=== PATIENT | male | born 1990 | race Two or more races ===

== ENCOUNTER 2018-04-28 15:26 | Inpatient (IN) | payer SELFPAY ==
[~2018-04-28] VITALS: Ht 177.8 cm; Wt 78.0 kg
[2018-04-28 15:36] VITALS: BP 120/57
[2018-04-28] MEDS ORDERED: LORazepam Inj 2mg/ml 1ml ONE (15:36)
--- NOTE | 2018-04-28 15:38 | Emergency Room Report ---
History of Present Illness General Chief Complaint: Overdose Source: EMS Present Illness HPI 28-year-old male, history of alcohol and some neck supple abuse, presenting with altered mental status. Reportedly he was altered per family, they called 911, EMS came and they gave him 6 mg Narcan, his breathing did improve however mental status did not, just moaning incontinence sounds. No other history able to be obtained Allergies: Coded Allergies: UNABLE TO ASSESS (Unverified , 04/28/18) Patient History Past Medical History: unable to obtain Past Surgical History: unable to obtain Pertinent Family History: unable to obtain Social History: Reports: drug use Nursing Documentation-[facility] Past Medical History: No Stated History Review of Systems All Other Systems: limited - altered Physical Exam Vital Signs Date Time Temp Pulse Resp B/P (MAP) Pulse Ox O2 Delivery O2 Flow Rate FiO2 04/28/18 15:26 99.0 150 28 120/57 98 Non-Rebreather 15.0 Sp02 EP Interpretation: reviewed, normal General Appearance: severe distress, other - Agitated young male, not giving any history, altered, vomiting, not conversing at all Head: normocephalic, atraumatic Eyes: bilateral eye other - Pupils are dilated bilaterally ENT: normal ENT inspection, normal pharynx, normal voice, moist mucus membranes Neck: normal inspection, full range of motion, supple Respiratory: normal inspection, lungs clear, normal breath sounds, no respiratory distress, no retraction, no wheezing, speaking full sentences, chest symmetrical Cardiovascular #1: tachycardia, irregularly irregular Cardiovascular #2: 2+ radial (R), 2+ radial (L) Gastrointestinal: normal inspection, non tender, soft, non-distended, no guarding Genitourinary: no CVA tenderness Musculoskeletal: other - Full passive range of motion of all extremities, no signs of trauma Neurologic: other - Gag reflex intact, moving all 4 Spontaneously, Good Motor Tone Psychiatric: other Skin: normal inspection, normal color, no rash, warm/dry, well hydrated, normal turgor Procedures Critical Care Time Critical Care Time 40 minutes of CC time 20-year-old male, possible overdose, vitals tachycardic, atrial fibrillation with RVR Airway patent. Not hypoxic. PLAN: IV access, labs, lactate, troponin, Blood/Urine Cx, Abx, IVF Anticipate admission to Tele vs. LUCERO CC time also includes review of labs, review of EMR, discussion with family and paperwork from SNF, d/w hospitalist CC could include dosing of pressors, additional Abx CC time does not include procedures Medical Decision Making Diagnostic Impression: Primary Impression: Drug overdose Additional Impressions: Atrial fibrillation with rapid ventricular response Altered mental status Polysubstance abuse Renal failure Sepsis ER Course 28-year-old male unknown pmhx p/w overdose DDX: tox such as alcohol / heroin / methamphetamines. R/O life threatening toxic overdose such as tylenol, ASA Plan: IV access, labs, including alcohol, tylenol, asa, IVF ER course: Patient continues to be altered Also continues to be tachycardic, atrial fibrillation with RVR, was initially in the 150s, came down to the 120s with fluids and Ativan Positive for polysubstance abuse I spoke with brother who came to the emergency room. States that patient did go out last night. Arrived at 9 AM and at that time he was talking, fully conversive. Says that the patient went to sleep, and then he noticed that the patient wasn't waking up and looked like he was having trouble breathing. Since then has not been conversing at all. Says that this has never happened in the past I decided to lumbar puncture, the CSF was clear Empiric antibiotics is given Sepsis Re-examination Time: 7p VS: Temp 99 HR 120 BP 130/90 RR 25 CVS: RRR Respiratory: Lungs clear bilaterally Peripheral pulses: 2+ radial Capillary refill: <2 seconds Skin exam: warm, dry, no rash, not mottled Disposition: Patient to be admitted to telemetry DW Dr Sales Please note that this Emergency Department Report was dictated using [employer] truck dispatcher technology software, occasionally this can lead to erroneous entry secondary to interpretation by the dictation equipment EKG Diagnostic Results EP Interpretation: Yes Rate: Tachycardic Rhythm: Atrial fibrillation ST Segments: No acute changes ASA given to patient: No Rhythm Strip EP Interpretation: Yes Rate: 158 Rhythm: Atrial fibrillation with RVR Chest X-ray CXR: Ordered: Yes 1 view Indication: Chest pain EP interpretation: Yes Interpretation: No consolidation, no effusion, no PTX, no acute cardiopulmonary disease Impression: No acute disease Electronically signed by Neymar Begum MD Laboratory Tests Test 04/28/18 15:30 04/28/18 16:15 04/28/18 16:58 04/28/18 18:20 White Blood Count 25.4 K/UL (4.8-10.8) *H Red Blood Count 5.16 M/UL (4.70-6.10) Hemoglobin 16.8 G/DL (14.2-18.0) Hematocrit 46.9 % (42.0-52.0) Mean Corpuscular Volume 91 FL (80-99) Mean Corpuscular Hemoglobin 32.6 PG (27.0-31.0) H Mean Corpuscular Hemoglobin Concent 35.9 G/DL (32.0-36.0) Red Cell Distribution Width 10.9 % (11.6-14.8) L Platelet Count 471 K/UL (150-450) H Mean Platelet Volume 6.7 FL (6.5-10.1) Neutrophils (%) (Auto) % (45.0-75.0) Lymphocytes (%) (Auto) % (20.0-45.0) Monocytes (%) (Auto) % (1.0-10.0) Eosinophils (%) (Auto) % (0.0-3.0) Basophils (%) (Auto) % (0.0-2.0) Differential Total Cells Counted 100 Neutrophils % (Manual) 83 % (45-75) H Lymphocytes % (Manual) 11 % (20-45) L Monocytes % (Manual) 3 % (1-10) Eosinophils % (Manual) 0 % (0-3) Basophils % (Manual) 1 % (0-2) Band Neutrophils 2 % (0-8) Platelet Estimate Increased H Platelet Morphology Normal Red Blood Cell Morphology Normal Sodium Level 141 MMOL/L (136-145) Potassium Level 3.8 MMOL/L (3.5-5.1) Chloride Level 103 MMOL/L (98-107) Carbon Dioxide Level 22 MMOL/L (21-32) Anion Gap 16 mmol/L (5-15) H Blood Urea Nitrogen 10 mg/dL (7-18) Creatinine 2.0 MG/DL (0.55-1.30) H Estimate Glomerular Filtration Rate 40.0 mL/min (>60) Glucose Level 201 MG/DL (74-106) H Lactic Acid Level 7.30 mmol/L (0.4-2.0) H 1.50 mmol/L (0.66-2.22) Calcium Level 9.0 MG/DL (8.5-10.1) Total Bilirubin 0.3 MG/DL (0.2-1.0) Aspartate Amino Transferase (AST) 57 U/L (15-37) H Alanine Aminotransferase (ALT) 81 U/L (12-78) H Alkaline Phosphatase 107 U/L (46-116) Total Creatine Kinase 937 U/L (26-308) H Troponin I 0.015 ng/mL (0.000-0.056) Total Protein 8.9 G/DL (6.4-8.2) H Albumin 4.0 G/DL (3.4-5.0) Globulin 4.9 g/dL Albumin/Globulin Ratio 0.8 (1.0-2.7) L Thyroid Stimulating Hormone (TSH) 1.448 uiU/mL (0.358-3.740) Salicylates Level 1.3 ug/mL (2.8-20) L Acetaminophen Level < 2 MCG/ML (10-30) L Serum Alcohol 4 mg/dL Urine Color Yellow Urine Appearance Clear Urine pH 6.5 (4.5-8.0) Urine Specific [place] 1.020 (1.005-1.035) Urine Protein 3+ (NEGATIVE) H Urine Glucose (UA) 1+ (NEGATIVE) H Urine Ketones Negative (NEGATIVE) Urine Blood 3+ (NEGATIVE) H Urine Nitrite Negative (NEGATIVE) Urine Bilirubin Negative (NEGATIVE) Urine Urobilinogen Normal MG/DL (0.0-1.0) Urine Leukocyte Esterase Negative (NEGATIVE) Urine RBC 2-4 /HPF (0 - 0) H Urine WBC 0-2 /HPF (0 - 0) Urine Squamous Epithelial Cells None /LPF (NONE/OCC) Urine Amorphous Sediment Few /LPF (NONE) H Urine Bacteria Few /HPF (NONE) Urine Opiates Screen Positive (NEGATIVE) H Urine Barbiturates Screen Negative (NEGATIVE) Phencyclidine (PCP) Screen Negative (NEGATIVE) Urine Amphetamines Screen Positive (NEGATIVE) H Urine Benzodiazepines Screen Negative (NEGATIVE) Urine Cocaine Screen Negative (NEGATIVE) Urine Marijuana (THC) Screen Positive (NEGATIVE) H CSF Appearance Pending CSF Color Pending CSF WBC Pending CSF RBC Pending CSF Neutrophils % Pending CSF Lymphocytes % Pending CSF Monocytes % Pending CSF Crenated Cells Pending CSF Glucose 90 mg/dL (50-80) H CSF Total Protein 34 MG/DL (15-45) CT/MRI/US Diagnostic Results CT/MRI/US Diagnostic Results : Imaging Test Ordered: CT HEAD Impression Impression: Negative for acute intracranial bleed or mass effect Somewhat limited exam due to slight motion artifact Last Vital Signs Date Time Temp Pulse Resp B/P (MAP) Pulse Ox O2 Delivery O2 Flow Rate FiO2 04/28/18 15:26 99.0 150 28 120/57 98 Non-Rebreather 15.0 Disposition: ADMITTED INPATIENT Condition: Critical Scripts Unable to Obtain Active Prescriptions or Reported Meds Neymar Begum M.D. Apr 28, 2018 15:38
[2018-04-28] MEDS ORDERED: LORazepam Inj 2mg/ml 1ml IV ONE (15:45)
--- NOTE | 2018-04-28 16:06 | Diagnostic Imaging Report ---
Indication: Cough, shortness of breath Technique: One view of the chest Comparison: none Findings: Lungs and pleural spaces are clear. Heart size is normal Impression: No acute process
--- NOTE | 2018-04-28 16:06 | Diagnostic Imaging Report ---
Indications: Altered mental status Technique: Spiral acquisitions obtained through the brain. Angled axial and coronal 5 x 5 mm slices were reconstructed. Total dose length product 1509.8 mGycm. CTDI vol(s) 70.38 mGy. Dose reduction achieved using automated exposure control Comparison: None. Findings: There is a small scalp hematoma in the high left parietal region. There is slight image degradation due to motion artifact. No acute intracranial hemorrhage or edema. No mass effect nor midline shift. Normal quintero-white differentiation. Normal-sized ventricles and extra axial CSF spaces. Visualized orbits and sinuses are unremarkable. The mastoids are clear Impression: Negative for acute intracranial bleed or mass effect Somewhat limited exam due to slight motion artifact The CT scanner at [facility] is accredited by the [employer] and the scans are performed using protocols designed to limit radiation exposure to as low as reasonably achievable to attain images of sufficient resolution adequate for diagnostic evaluation.
[2018-04-28 16:11] LABS: HEMATOCRIT 46.9 % (42.0-52.0); HEMOGLOBIN 16.8 G/DL (14.2-18.0); MEAN CORPUSCULAR VOLUME 91 FL (80-99); PLATELET COUNT 471 K/UL (150-450); RED BLOOD COUNT 5.16 M/UL (4.70-6.10); RED CELL DISTRIBUTION WIDTH 10.9 % (11.6-14.8)
[2018-04-28 16:12] LABS: ANION GAP 16 mmol/L (5-15); BLOOD UREA NITROGEN 10 mg/dL (7-18); CARBON DIOXIDE 22 MMOL/L (21-32); CHLORIDE 103 MMOL/L (98-107); POTASSIUM 3.8 MMOL/L (3.5-5.1); SODIUM 141 MMOL/L (136-145)
[2018-04-28 16:21] LABS: WHITE BLOOD COUNT 25.4 K/UL (4.8-10.8)
[2018-04-28 16:24] LABS: ALANINE AMINOTRANSFERASE 81 U/L (12-78); ALBUMIN/GLOBULIN RATIO 0.8 (1.0-2.7); ALKALINE PHOSPHATASE 107 U/L (46-116); ASPARTATE AMINO TRANSFERASE 57 U/L (15-37); BILIRUBIN,TOTAL 0.3 MG/DL (0.2-1.0); CREATINE KINASE 937 U/L (26-308)
[2018-04-28 16:39] LABS: APPEARANCE,URINE CLEAR; BILIRUBIN, URINE NEGATIVE (NEGATIVE); GLUCOSE, URINE (UA) 1+ (NEGATIVE); KETONES,URINE NEGATIVE (NEGATIVE); LEUKOCYTE ESTERASE ,URINE NEGATIVE (NEGATIVE); NITRITE,URINE NEGATIVE (NEGATIVE); PH,URINE 6.5 (4.5-8.0); PROTEIN,URINE 3+ (NEGATIVE); UROBILINOGEN,URINE NORMAL MG/DL (0.0-1.0)
[2018-04-28 16:47] LABS: COLOR,URINE YELLOW
[2018-04-28] MEDS ORDERED: Vancomycin 1250mg/D5W 250ml 250 ML IVPB ONE (17:00)
[2018-04-28] MEDS ORDERED: Piperacillin/Tazobactam 3.375 GM in NS 110 ML IVPB ONE (17:00)
[2018-04-28 17:25] VITALS: BP 125/70
[2018-04-28] MEDS ORDERED: Lidocaine 1% Plain 30 ml INJ ONE (18:00)
[2018-04-28] MEDS ORDERED: Morphine Sulfate 2mg/ml Inj IVP PRN (19:15)
[2018-04-28] MEDS ORDERED: LORazepam 1mg tab ORAL PRN (19:15)
--- NOTE | 2018-04-28 19:20 | History and Physical ---
History of Present Illness General Date patient seen: Apr 28, 2018 Time patient seen: 19:08 Reason for Hospitalization: Overdose Present Illness HPI 28 yo male with unknown pmh presents to ED due to altered mental status. Patient brought in by his friend. States patient came to his house to hang out, after 3 hours patient was noted to be passed out sitting up in his chair. His friend denies knowing of any drug history in patient's past. Denies knowing of any medications patient is on except for xanax, friend does not know where patient got xanax from. Denies seeing him vomit/aspirate. Patient was given 6mg narcan in the ED and patient did improve a bit, breathing improved, moaning in bed. Patient was noted to be in afib rvr, patient was given fluids and rate improved, currently tachycardic with HR 113s and sustaining. Friend states patient does drink alcohol occasionally and smokes marijuana. denies being aware of any other drug abuse hx. patient to remain full code. Allergies: Coded Allergies: UNABLE TO ASSESS (Unverified , 04/28/18) Medication History Unable to Obtain Active Prescriptions or Reported Meds Patient History History Provided By: Friend Healthcare decision maker Resuscitation status Advanced Directive on File Review of Systems ROS Narrative unable to obtain due to patient's clinical condition Physical Exam General Appearance: other - not alert, sleeping, breathing heavily, maintaining airway HEENT: normocephalic, atraumatic, anicteric, other - pinpoint pupils b/l slightly reactive to light. Neck: supple, normal inspection Respiratory/Chest: lungs clear, normal breath sounds, no respiratory distress Cardiovascular/Chest: normal peripheral pulses, tachycardia Abdomen: non tender, soft, no organomegaly, no mass Extremities: normal range of motion, normal inspection Skin Exam: normal pigmentation, warm/dry Neurologic: unresponsiveness Last 24 Hour Vital Signs Date Time Temp Pulse Resp B/P (MAP) Pulse Ox O2 Delivery O2 Flow Rate FiO2 04/28/18 17:25 97.0 121 18 125/70 96 Simple Mask 4.0 04/28/18 15:36 150 28 Nasal Cannula 4.0 04/28/18 15:36 99.0 150 28 120/57 98 Nasal Cannula 4.0 04/28/18 15:26 99.0 150 28 120/57 98 Non-Rebreather 15.0 Laboratory Tests Test 04/28/18 15:30 04/28/18 16:15 04/28/18 16:58 04/28/18 18:20 White Blood Count 25.4 K/UL (4.8-10.8) *H Red Blood Count 5.16 M/UL (4.70-6.10) Hemoglobin 16.8 G/DL (14.2-18.0) Hematocrit 46.9 % (42.0-52.0) Mean Corpuscular Volume 91 FL (80-99) Mean Corpuscular Hemoglobin 32.6 PG (27.0-31.0) H Mean Corpuscular Hemoglobin Concent 35.9 G/DL (32.0-36.0) Red Cell Distribution Width 10.9 % (11.6-14.8) L Platelet Count 471 K/UL (150-450) H Mean Platelet Volume 6.7 FL (6.5-10.1) Neutrophils (%) (Auto) % (45.0-75.0) Lymphocytes (%) (Auto) % (20.0-45.0) Monocytes (%) (Auto) % (1.0-10.0) Eosinophils (%) (Auto) % (0.0-3.0) Basophils (%) (Auto) % (0.0-2.0) Differential Total Cells Counted 100 Neutrophils % (Manual) 83 % (45-75) H Lymphocytes % (Manual) 11 % (20-45) L Monocytes % (Manual) 3 % (1-10) Eosinophils % (Manual) 0 % (0-3) Basophils % (Manual) 1 % (0-2) Band Neutrophils 2 % (0-8) Platelet Estimate Increased H Platelet Morphology Normal Red Blood Cell Morphology Normal Sodium Level 141 MMOL/L (136-145) Potassium Level 3.8 MMOL/L (3.5-5.1) Chloride Level 103 MMOL/L (98-107) Carbon Dioxide Level 22 MMOL/L (21-32) Anion Gap 16 mmol/L (5-15) H Blood Urea Nitrogen 10 mg/dL (7-18) Creatinine 2.0 MG/DL (0.55-1.30) H Estimat Glomerular Filtration Rate 40.0 mL/min (>60) Glucose Level 201 MG/DL (74-106) H Lactic Acid Level 7.30 mmol/L (0.4-2.0) H 1.50 mmol/L (0.66-2.22) Calcium Level 9.0 MG/DL (8.5-10.1) Total Bilirubin 0.3 MG/DL (0.2-1.0) Aspartate Amino Transf (AST/SGOT) 57 U/L (15-37) H Alanine Aminotransferase (ALT/SGPT) 81 U/L (12-78) H Alkaline Phosphatase 107 U/L (46-116) Total Creatine Kinase 937 U/L (26-308) H Troponin I 0.015 ng/mL (0.000-0.056) Total Protein 8.9 G/DL (6.4-8.2) H Albumin 4.0 G/DL (3.4-5.0) Globulin 4.9 g/dL Albumin/Globulin Ratio 0.8 (1.0-2.7) L Thyroid Stimulating Hormone (TSH) 1.448 uiU/mL (0.358-3.740) Salicylates Level 1.3 ug/mL (2.8-20) L Acetaminophen Level < 2 MCG/ML (10-30) L Serum Alcohol 4 mg/dL Urine Color Yellow Urine Appearance Clear Urine pH 6.5 (4.5-8.0) Urine Specific [place] 1.020 (1.005-1.035) Urine Protein 3+ (NEGATIVE) H Urine Glucose (UA) 1+ (NEGATIVE) H Urine Ketones Negative (NEGATIVE) Urine Blood 3+ (NEGATIVE) H Urine Nitrite Negative (NEGATIVE) Urine Bilirubin Negative (NEGATIVE) Urine Urobilinogen Normal MG/DL (0.0-1.0) Urine Leukocyte Esterase Negative (NEGATIVE) Urine RBC 2-4 /HPF (0 - 0) H Urine WBC 0-2 /HPF (0 - 0) Urine Squamous Epithelial Cells None /LPF (NONE/OCC) Urine Amorphous Sediment Few /LPF (NONE) H Urine Bacteria Few /HPF (NONE) Urine Opiates Screen Positive (NEGATIVE) H Urine Barbiturates Screen Negative (NEGATIVE) Phencyclidine (PCP) Screen Negative (NEGATIVE) Urine Amphetamines Screen Positive (NEGATIVE) H Urine Benzodiazepines Screen Negative (NEGATIVE) Urine Cocaine Screen Negative (NEGATIVE) Urine Marijuana (THC) Screen Positive (NEGATIVE) H CSF Appearance Pending CSF Color Pending CSF WBC Pending CSF RBC Pending CSF Neutrophils % Pending CSF Lymphocytes % Pending CSF Monocytes % Pending CSF Crenated Cells Pending CSF Glucose 90 mg/dL (50-80) H CSF Total Protein 34 MG/DL (15-45) Height (Feet): 5 Height (Inches): 10.00 Weight (Pounds): 180 Medications Current Medications Medications (Trade) Dose Ordered Sig/Deisy Route PRN Reason Start Time Stop Time Status Last Admin Dose Admin Heparin Sodium (Porcine) (Heparin 5000 units/ml) 5,000 units EVERY 8 HOURS SUBQ 04/28/18 22:00 05/28/18 21:59 UNV Lorazepam (Ativan) 1 mg Q6H PRN ORAL For Anxiety 04/28/18 19:15 05/05/18 19:14 UNV Piperacillin Sod/ Tazobactam Sod 3.375 gm/Sodium Chloride 110 ml @ 27.5 mls/hr EVERY 8 HOURS IVPB 04/29/18 06:00 05/06/18 05:59 Sodium Chloride 1,000 ml @ 999 mls/hr Q1H1M IV 04/28/18 18:53 04/28/18 19:53 Vancomycin HCl (Vanco rx to dose) 1 ea DAILY MISC 04/29/18 09:00 05/29/18 08:59 Assessment/Plan Problem List: (1) Septic shock Assessment & Plan: wbc 25.4, LA 7.1, HR 118 with alize with Cr 2.0 on admit unknown source of infection blood cx x 2 sent LP done by ED physician, labs sent out IVF, aggressive hydration cxr reviewed, neg acute cardopulm processes noted cth reviewed, neg acute vanc, zosyn tele i/o monitor closely low threshold for ICU transfer if becomes more somnolent and has difficulty maintaining airway. currently stable, maintaining airway ICD Codes: A41.9 - Sepsis, unspecified organism; R65.21 - Severe sepsis with septic shock SNOMED: 12036853 (2) Acute metabolic encephalopathy Assessment & Plan: due to septic shock vs substance abuse (meth) fluids tele monitor closely LP done cx pending management per above ICD Codes: G93.41 - Metabolic encephalopathy SNOMED: 26263494, 348617271 (3) Atrial fibrillation with RVR Assessment & Plan: ekg reviewed, was in afib rvr, rate controlled with fluids.. continue hydration, monitor tele ICD Codes: I48.91 - Unspecified atrial fibrillation SNOMED: 302692548412776 (4) Polysubstance abuse Assessment & Plan: amph+ opiates+ marijuana+ will need to discuss drug cessation when more awake ICD Codes: F19.10 - Other psychoactive substance abuse, uncomplicated SNOMED: 423053316 (5) Renal failure Assessment & Plan: Cr 2.0 likely due to sepsis vs severe dehydration from drug abuse cont aggressive hydration monitor cr ICD Codes: N19 - Unspecified kidney failure SNOMED: 93824206 Qualifiers: Status: stable Assessment/Plan ppx: heparin diet: npo i have spent over 70 mins in the coordination of care for this patient along with over 35 mins of face to face time with patient and friend. Please feel free to contact me at any time thank you Rosemary Sales [facility] Rosemary Sales MD Apr 28, 2018 19:20
[2018-04-28 21:17] VITALS: BP 110/53
[2018-04-28 21:30] VITALS: BP 100/73
[2018-04-28] MEDS ORDERED: Piperacillin/Tazobactam 3.375 GM in D5W 55 ML IV SCH (22:00)
[2018-04-28] MEDS: Heparin 5000 units/ml inj SUBQ SCH (22:34)
[2018-04-29] VITALS: BP 101/73
[2018-04-29 04:00] VITALS: BP 100/65
[2018-04-29 04:54] LABS: HEMATOCRIT 44.6 % (42.0-52.0); HEMOGLOBIN 15.6 G/DL (14.2-18.0); MEAN CORPUSCULAR VOLUME 90 FL (80-99); PLATELET COUNT 385 K/UL (150-450); RED BLOOD COUNT 4.95 M/UL (4.70-6.10); RED CELL DISTRIBUTION WIDTH 11.1 % (11.6-14.8)
[2018-04-29 05:20] LABS: WHITE BLOOD COUNT 23.7 K/UL (4.8-10.8)
[2018-04-29] MEDS: Zoysn 3.37gm in NS 100ML IVPB SCH ×3 (05:30→22:07)
[2018-04-29] MEDS: Heparin 5000 units/ml inj SUBQ SCH ×3 (05:31→22:08)
[2018-04-29 05:46] LABS: ANION GAP 7 mmol/L (5-15); BLOOD UREA NITROGEN 10 mg/dL (7-18); CALCIUM 7.7 MG/DL (8.5-10.1); CARBON DIOXIDE 27 MMOL/L (21-32); CHLORIDE 105 MMOL/L (98-107); CREATININE 1.3 MG/DL (0.55-1.30); POTASSIUM 3.8 MMOL/L (3.5-5.1); SODIUM 139 MMOL/L (136-145)
[2018-04-29 05:57] LABS: ALANINE AMINOTRANSFERASE 69 U/L (12-78); ALBUMIN 3.3 G/DL (3.4-5.0); ALBUMIN/GLOBULIN RATIO 0.8 (1.0-2.7); ALKALINE PHOSPHATASE 83 U/L (46-116); ASPARTATE AMINO TRANSFERASE 45 U/L (15-37); BILIRUBIN,TOTAL 1.1 MG/DL (0.2-1.0)
[2018-04-29 06:00] LABS: BILIRUBIN,DIRECT 0.3 MG/DL (0.0-0.3)
[2018-04-29] MEDS: Vancomycin 1gm in Dextrose 275ml IVPB SCH ×3 (07:00→23:53)
[2018-04-29 08:00] VITALS: BP 101/55
--- NOTE | 2018-04-29 11:14 | General Progress Note ---
Assessment/Plan Problem List: (1) Septic shock Assessment & Plan: more awake now wbc still elevated but down to 23 from 25 cont eliane, oumar bcx x 2 sent out yesterday on admit cont fluids LA resolved, wnl now ICD Codes: A41.9 - Sepsis, unspecified organism; R65.21 - Severe sepsis with septic shock SNOMED: 23730454 (2) Acute metabolic encephalopathy Assessment & Plan: due to septic shock vs substance abuse (meth) fluids tele monitor closely LP done, neg stable resolved, back to baseline ICD Codes: G93.41 - Metabolic encephalopathy SNOMED: 74853001, 079139953 (3) Atrial fibrillation with RVR Assessment & Plan: rate controlled now likely due to shock, substance abuse cont on tele monitor ICD Codes: I48.91 - Unspecified atrial fibrillation SNOMED: 773633187365670 (4) Polysubstance abuse Assessment & Plan: amph+ opiates+ marijuana+ will need to discuss drug cessation when more awake ICD Codes: F19.10 - Other psychoactive substance abuse, uncomplicated SNOMED: 990984841 (5) Renal failure Assessment & Plan: resolved cont fluids due to dehydration, shock , substance abuse ICD Codes: N19 - Unspecified kidney failure SNOMED: 98604284 Qualifiers: Status: stable Assessment/Plan ppx: heparin diet: regular diet I have spent over 70 mins in the coordination of care for this patient along with over 35 mins of face to face time with patient and friend. Please feel free to contact me at any time Thank you Rosemary Sales [facility] Subjective Date patient seen: Apr 29, 2018 Time patient seen: 11:09 Allergies: Coded Allergies: NO KNOWN ALLERGIES (Verified Allergy, Unknown, 04/29/18) All Systems: reviewed and negative except above Subjective patient awake now conversing appropriately denies any complaints states he overdosed on xanax denied drug use at first, then admitted to meth use once i had brought it up is asking for food, is hungry denies any cp, sob, fevers, chills Objective Last 24 Hour Vital Signs Date Time Temp Pulse Resp B/P (MAP) Pulse Ox O2 Delivery O2 Flow Rate FiO2 04/29/18 08:00 98.2 93 16 101/55 (70) 92 04/29/18 04:00 96.8 110 18 100/65 (77) 97 04/29/18 04:00 121 04/29/18 00:00 107 04/29/18 00:00 96.8 102 20 101/73 (82) 91 04/28/18 21:40 98.0 100 18 110/53 96 Simple Mask 4.0 100 04/28/18 21:37 113 04/28/18 21:30 Simple Mask 4.0 04/28/18 21:30 96.8 113 18 100/73 (82) 93 04/28/18 21:17 98.0 100 18 110/53 96 Simple Mask 4.0 04/28/18 17:25 97.0 121 18 125/70 96 Simple Mask 4.0 04/28/18 15:36 150 28 Nasal Cannula 4.0 04/28/18 15:36 99.0 150 28 120/57 98 Nasal Cannula 4.0 04/28/18 15:26 99.0 150 28 120/57 98 Non-Rebreather 15.0 Intake and Output 04/28/18 04/29/18 19:00 07:00 Intake Total 2110 ml 1321.25 ml Output Total 1000 ml Balance 2110 ml 321.25 ml Intake IV Total 2110 ml 1321.25 ml Output Urine Total 1000 ml # Voids 1 Laboratory Tests 04/28/18 15:30: White Blood Count 25.4*H, Red Blood Count 5.16, Hemoglobin 16.8, Hematocrit 46.9 , Mean Corpuscular Volume 91, Mean Corpuscular Hemoglobin 32.6H, Mean Corpuscular Hemoglobin Concent 35.9, Red Cell Distribution Width 10.9L, Platelet Count 471H, Mean Platelet Volume 6.7, Neutrophils (%) (Auto) , Lymphocytes (%) (Auto) , Monocytes (%) (Auto) , Eosinophils (%) (Auto) , Basophils (%) (Auto) , Differential Total Cells Counted 100, Neutrophils % ( Manual) 83H, Lymphocytes % (Manual) 11L, Monocytes % (Manual) 3, Eosinophils % ( Manual) 0, Basophils % (Manual) 1, Band Neutrophils 2, Platelet Estimate IncreasedH, Platelet Morphology Normal, Red Blood Cell Morphology Normal, Sodium Level 141, Potassium Level 3.8, Chloride Level 103, Carbon Dioxide Level 22, Anion Gap 16H, Blood Urea Nitrogen 10, Creatinine 2.0H, Estimat Glomerular Filtration Rate 40.0, Glucose Level 201H, Lactic Acid Level 7.30H, Calcium Level 9.0, Total Bilirubin 0.3, Aspartate Amino Transf (AST/SGOT) 57H, Alanine Aminotransferase (ALT/SGPT) 81H, Alkaline Phosphatase 107, Total Creatine Kinase 937H, Creatine Kinase MB 6.8H, Troponin I 0.015, Total Protein 8.9H, Albumin 4.0, Globulin 4.9, Albumin/Globulin Ratio 0.8L, Thyroid Stimulating Hormone (TSH) 1.448, Salicylates Level 1.3L, Acetaminophen Level < 2L, Serum Alcohol 4 04/28/18 16:15: Urine Color Yellow, Urine Appearance Clear, Urine pH 6.5, Urine Specific [place] 1.020, Urine Protein 3+H, Urine Glucose (UA) 1+H, Urine Ketones Negative , Urine Blood 3+H, Urine Nitrite Negative, Urine Bilirubin Negative, Urine Urobilinogen Normal, Urine Leukocyte Esterase Negative, Urine RBC 2-4H, Urine WBC 0-2, Urine Squamous Epithelial Cells None, Urine Amorphous Sediment FewH, Urine Bacteria Few, Urine Opiates Screen PositiveH, Urine Barbiturates Screen Negative, Phencyclidine (PCP) Screen Negative, Urine Amphetamines Screen PositiveH, Urine Benzodiazepines Screen Negative, Urine Cocaine Screen Negative , Urine Marijuana (THC) Screen PositiveH 04/28/18 16:58: Lactic Acid Level 1.50 04/28/18 18:20: CSF Appearance Clear, CSF Color Colorless, CSF WBC 2, CSF RBC 25, CSF Neutrophils % , CSF Lymphocytes % , CSF Monocytes % , CSF Crenated Cells , CSF Glucose 90H, CSF Total Protein 34 04/28/18 21:15: Lactic Acid Level 1.10 04/29/18 04:00: White Blood Count 23.7*H, Red Blood Count 4.95, Hemoglobin 15.6, Hematocrit 44.6 , Mean Corpuscular Volume 90, Mean Corpuscular Hemoglobin 31.6H, Mean Corpuscular Hemoglobin Concent 35.0, Red Cell Distribution Width 11.1L, Platelet Count 385, Mean Platelet Volume 7.2, Neutrophils (%) (Auto) , Lymphocytes (%) (Auto) , Monocytes (%) (Auto) , Eosinophils (%) (Auto) , Basophils (%) (Auto) , Differential Total Cells Counted 100, Neutrophils % ( Manual) 78H, Lymphocytes % (Manual) 13L, Monocytes % (Manual) 8, Eosinophils % ( Manual) 1, Basophils % (Manual) 0, Band Neutrophils 0, Platelet Estimate Adequate, Platelet Morphology Normal, Red Blood Cell Morphology Normal, Sodium Level 139, Potassium Level 3.8, Chloride Level 105, Carbon Dioxide Level 27, Anion Gap 7, Blood Urea Nitrogen 10, Creatinine 1.3, Estimat Glomerular Filtration Rate > 60, Glucose Level 86#, Calcium Level 7.7L, Total Bilirubin 1.1H, Direct Bilirubin 0.3, Aspartate Amino Transf (AST/SGOT) 45H, Alanine Aminotransferase (ALT/SGPT) 69, Alkaline Phosphatase 83, Total Protein 7.4, Albumin 3.3L, Globulin 4.1, Albumin/Globulin Ratio 0.8L, Random Vancomycin Level 4.4 Height (Feet): 5 Height (Inches): 10.00 Weight (Pounds): 172 General Appearance: no apparent distress, alert EENT: PERRL/EOMI, normal ENT inspection, TMs normal, pharynx normal Neck: non-tender, normal alignment, supple, normal inspection Cardiovascular: normal peripheral pulses, normal rate, regular rhythm Respiratory/Chest: chest wall non-tender, lungs clear, normal breath sounds, no respiratory distress, no accessory muscle use Abdomen: normal bowel sounds, non tender, soft, no organomegaly, no mass Extremities: normal range of motion, non-tender 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
[2018-04-29 12:00] VITALS: BP 106/61
[2018-04-29 16:00] VITALS: BP 118/63
[2018-04-29 20:00] VITALS: BP 113/66
[2018-04-30] VITALS: BP 116/73
[2018-04-30] MEDS: Vancomycin 1gm in Dextrose 275ml IVPB SCH ×3 (02:09→18:37)
[2018-04-30 04:00] VITALS: BP 122/57
[2018-04-30] MEDS: Zoysn 3.37gm in NS 100ML IVPB SCH ×3 (05:17→22:39)
[2018-04-30] MEDS: Heparin 5000 units/ml inj SUBQ SCH ×3 (05:18→22:40)
[2018-04-30 08:00] VITALS: BP 117/65
--- NOTE | 2018-04-30 08:33 | General Progress Note ---
Assessment/Plan Problem List: (1) Septic shock Assessment & Plan: more awake now wbc trending down, pending AM labs cont abx bxc pending LA resolved, wnl now ICD Codes: A41.9 - Sepsis, unspecified organism; R65.21 - Severe sepsis with septic shock SNOMED: 14647531 (2) Acute metabolic encephalopathy Assessment & Plan: due to septic shock vs substance abuse (meth) fluids tele monitor closely LP done, neg stable resolved, back to baseline ICD Codes: G93.41 - Metabolic encephalopathy SNOMED: 19067419, 573541668 (3) Atrial fibrillation with RVR Assessment & Plan: rate controlled now likely due to shock, substance abuse cont on tele monitor ICD Codes: I48.91 - Unspecified atrial fibrillation SNOMED: 160886745204361 (4) Polysubstance abuse Assessment & Plan: amph+ opiates+ marijuana+ will need to discuss drug cessation when more awake ICD Codes: F19.10 - Other psychoactive substance abuse, uncomplicated SNOMED: 646099356 (5) Renal failure Assessment & Plan: resolved cont fluids due to dehydration, shock , substance abuse ICD Codes: N19 - Unspecified kidney failure SNOMED: 77927854 Qualifiers: Status: doing well, stable, progressing Assessment/Plan ppx: heparin diet: regular diet I have spent over 45 mins in the coordination of care for this patient along with over 35 mins of face to face time with patient and friend. Please feel free to contact me at any time Thank you Rosemary Sales [facility] Subjective Date patient seen: Apr 30, 2018 Time patient seen: 08:31 Allergies: Coded Allergies: NO KNOWN ALLERGIES (Verified Allergy, Unknown, 04/29/18) Subjective patient awake now no acute events overnight feeling better now says he will quit doing drugs 12 point ros negative except for the above Objective Last 24 Hour Vital Signs Date Time Temp Pulse Resp B/P (MAP) Pulse Ox O2 Delivery O2 Flow Rate FiO2 04/30/18 08:00 97.5 88 20 117/65 (82) 97 04/30/18 04:00 98.4 88 20 122/57 (78) 96 04/30/18 03:53 90 04/30/18 00:00 99.5 100 20 116/73 (87) 98 04/29/18 23:30 101.8 11/15/18 23:22 107 04/29/18 21:00 Nasal Cannula 3.0 04/29/18 20:03 100 04/29/18 20:00 98.0 106 20 113/66 (82) 97 04/29/18 16:00 99.0 109 16 118/63 (81) 97 04/29/18 16:00 101 04/29/18 12:00 99.7 103 20 106/61 (76) 92 04/29/18 12:00 100 04/29/18 09:00 Nasal Cannula 3.0 Intake and Output 04/29/18 04/30/18 19:00 07:00 Intake Total 390 ml 2090.000 ml Output Total 300 ml Balance 90 ml 2090.000 ml Intake Oral 240 ml IV Total 150 ml 2090.000 ml Output Urine Total 300 ml # Voids 2 2 Height (Feet): 5 Height (Inches): 10.00 Weight (Pounds): 172 General Appearance: no apparent distress, alert EENT: PERRL/EOMI, normal ENT inspection, TMs normal Neck: non-tender, normal alignment, supple, normal inspection Cardiovascular: normal peripheral pulses, normal rate, regular rhythm Respiratory/Chest: chest wall non-tender, lungs clear, normal breath sounds, no respiratory distress, no accessory muscle use Abdomen: normal bowel sounds, non tender, soft, no organomegaly, no mass Extremities: normal range of motion, non-tender, normal inspection 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
[2018-04-30 09:45] LABS: ANION GAP 9 mmol/L (5-15); BLOOD UREA NITROGEN 5 mg/dL (7-18); CALCIUM 8.6 MG/DL (8.5-10.1); CARBON DIOXIDE 25 MMOL/L (21-32); CHLORIDE 107 MMOL/L (98-107); POTASSIUM 3.2 MMOL/L (3.5-5.1); SODIUM 141 MMOL/L (136-145)
[2018-04-30 12:00] VITALS: BP 106/57
[2018-04-30 12:54] LABS: BASOPHILS % (AUTO) 0.9 % (0.0-2.0); HEMATOCRIT 39.7 % (42.0-52.0); LYMPHOCYTES % (AUTO) 16.2 % (20.0-45.0); MEAN CORPUSCULAR VOLUME 89 FL (80-99); MONOCYTES % (AUTO) 6.3 % (1.0-10.0); NEUTROPHILS % (AUTO) 73.6 % (45.0-75.0); PLATELET COUNT 328 K/UL (150-450); RED BLOOD COUNT 4.44 M/UL (4.70-6.10); RED CELL DISTRIBUTION WIDTH 10.7 % (11.6-14.8); WHITE BLOOD COUNT 13.8 K/UL (4.8-10.8)
[2018-04-30] MEDS ORDERED: Tubing IV Secondary IV ONE (15:36)
[2018-04-30] MEDS ORDERED: NS 275ml ONE (15:36)
[2018-04-30 16:00] VITALS: BP 111/69
--- NOTE | 2018-04-30 16:39 | Cardiology Report ---
APPROVED REPORT EKG Measurement Heart [id number] Atrial fibrillation with rapid ventricular response Nonspecific ST abnormality Abnormal QRS-T angle, consider primary T wave abnormality Abnormal ECG
[2018-04-30 20:00] VITALS: BP 120/70
[2018-05-01] VITALS: BP 126/68
[2018-05-01] MEDS: Vancomycin 1gm in Dextrose 275ml IVPB SCH (02:46)
[2018-05-01 04:00] VITALS: BP 117/76
[2018-05-01] MEDS ORDERED: guaiFENesin 100mg/5ml Liq ud ORAL PRN (04:15)
[2018-05-01] MEDS: Zoysn 3.37gm in NS 100ML IVPB SCH (06:23)
[2018-05-01] MEDS: Heparin 5000 units/ml inj SUBQ SCH (06:24)
[2018-05-01 07:58] LABS: BASOPHILS % (AUTO) 1.2 % (0.0-2.0); EOSINOPHILS % (AUTO) 5.1 % (0.0-3.0); HEMATOCRIT 43.4 % (42.0-52.0); HEMOGLOBIN 15.4 G/DL (14.2-18.0); LYMPHOCYTES % (AUTO) 26.9 % (20.0-45.0); MEAN CORPUSCULAR VOLUME 88 FL (80-99); MONOCYTES % (AUTO) 5.4 % (1.0-10.0); NEUTROPHILS % (AUTO) 61.4 % (45.0-75.0); PLATELET COUNT 394 K/UL (150-450); RED BLOOD COUNT 4.92 M/UL (4.70-6.10); RED CELL DISTRIBUTION WIDTH 10.7 % (11.6-14.8); WHITE BLOOD COUNT 9.1 K/UL (4.8-10.8)
[2018-05-01 08:00] VITALS: BP 139/91
--- NOTE | 2018-05-01 08:12 | Discharge Summary ---
Discharge Summary Hospital Course Date of Admission Apr 28, 2018 at 16:03 Date of Discharge 05/01/18 Admitting Diagnosis AFIB, OD HPI Sami Maradiaga is a 28 year old male who was admitted on Apr 28, 2018 at 16: 03 for Atrial Fibrillation, Overdose Hospital Course 28 yo male with no sig pmh presented to [facility] [place] due to altered mental status. Patient's friend states he came over to the house and fell asleep in his chair after a few hours. he was having a difficult time waking his friend up, he would not move or wake up, so he brought him to [facility] [place]. Friend does not know of any medical conditions that he has, states he does not do drugs however UDS + amphetamine, states patient does take a lot of xanax. Patietn was brought in and labs and vitals were concerning for septic shock, was noted to be in mild CONNIE. Patient was given fluids aggresively and bcx were sent. CXR was reviewed, negative acute, ekg was sinus tachy. Patient improved during hospital course with abx and fluids. Bcx remained neg. Patient awake and alert and ready to go home. wbc resolved as well. patient has been educated multiple times for over 15 mins on drug cessation patient is stable to dc home f/u with pcp in 1 week will also write script for abx augmentin for 7 days. 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 Please feel free to contact me at any time Thank you Rosemary Sales [facility] Discharge Condition Upon Discharge: stable Discharge Disposition Patient was discharged to Discharge Diagnoses: (1) Drug abuse (2) Septic shock (3) Atrial fibrillation with rapid ventricular response (4) Drug overdose (5) Polysubstance abuse (6) Altered mental status (7) Renal failure Rosemary Sales MD May 01, 2018 08:12
[2018-05-01 08:18] LABS: ANION GAP 12 mmol/L (5-15); BLOOD UREA NITROGEN 5 mg/dL (7-18); CALCIUM 9.8 MG/DL (8.5-10.1); CARBON DIOXIDE 24 MMOL/L (21-32); CHLORIDE 106 MMOL/L (98-107); CREATININE 0.8 MG/DL (0.55-1.30); POTASSIUM 3.5 MMOL/L (3.5-5.1); SODIUM 142 MMOL/L (136-145)
[2018-05-01] MEDS ORDERED: LEVOFLOXACIN750 MG ORAL (08:20)
== END 2018-05-01 08:56 | disposition home or self-care (01) | DRG 871 ==
LOC: EDBD 15:26 → EMR 15:54 → 2E 16:03 → EDBD 16:03 → EDBEDREQ 16:40
DX: A41.9 Sepsis, unspecified organism (principal); R65.21 Severe sepsis with septic shock; G93.41 Metabolic encephalopathy; N17.9 Acute kidney failure, unspecified; I48.91 Unspecified atrial fibrillation; F19.10 Other psychoactive substance abuse, uncomplicated; T50.991A Poisoning by other drugs, medicaments and biological substances, accidental (unintentional), initial encounter; R41.82 Altered mental status, unspecified; Y92.009 Unspecified place in unspecified non-institutional (private) residence as the place of occurrence of the external cause
CPT/HCPCS: 36415; 70450; 71045; 80048; 80053; 80202; 80307; 80329; 81003; 82248; 82550; 82553; 82945; 83605; 84157; 84443; 84484; 85007; 85025; 86710; 87040; 87070; 87205; 89051; 93005; 96361; 96365; 96367; 96375; 99291; J8499

== ENCOUNTER 2019-12-11 12:26 | Emergency (ER) | payer SELFPAY ==
[~2019-12-11] VITALS: Ht 170.2 cm; Wt 81.6 kg
[~2019-12-11 12:26] MED LIST: LEVOFLOXACIN750 MG ORAL
--- NOTE | 2019-12-11 12:40 | NUR ---
ED Nurse Note: Pt arrived via ambulance for OD of oxy and another substance. Pt was found on streets. Narcan 2 administerd by ambulance. Pt is alert adn ox4, drowsy. He is set up on monitor. Pt blood sent to lab.
[2019-12-11 12:45] VITALS: BP 127/62
[2019-12-11 12:50] LABS: BASOPHILS % (AUTO) 1.2 % (0.0-2.0); EOSINOPHILS % (AUTO) 1.6 % (0.0-3.0); HEMATOCRIT 49.6 % (42.0-52.0); HEMOGLOBIN 16.3 G/DL (14.2-18.0); LYMPHOCYTES % (AUTO) 16.5 % (20.0-45.0); MEAN CORPUSCULAR VOLUME 97 FL (80-99); MONOCYTES % (AUTO) 3.2 % (1.0-10.0); NEUTROPHILS % (AUTO) 77.6 % (45.0-75.0); PLATELET COUNT 260 K/UL (150-450); RED BLOOD COUNT 5.13 M/UL (4.70-6.10); RED CELL DISTRIBUTION WIDTH 11.8 % (11.6-14.8); WHITE BLOOD COUNT 17.1 K/UL (4.8-10.8)
--- NOTE | 2019-12-11 12:51 | Emergency Room Report ---
History of Present Illness General Chief Complaint: Substance Abuse Source: Patient, EMS Present Illness HPI Disclaimer: Please note that this report is being documented using DRAGON technology. This can lead to erroneous entry secondary to incorrect interpretation by the dictating instrument. HPI: 29-year-old male brought in by EMS for overdose. EMS states he was abusing OxyContin and Xanax. He has a prescription for both. The patient is somnolent but arousable to voice. He states that he has been abusing pills and alcohol for some time and would like to go to rehab. Today he states he took 10 tablets of 10 mg oxycodone and 5 tablets of 2 mg Xanax. He states this is a typical routine for him. He had alcohol yesterday but denies any today. Occasionally will use cocaine and THC. Denies other substance abuse. He states this was recreational and part of his addiction that he was not attempting to harm himself in any way. He was given 2 mg Narcan in the field with some result. 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 HEENT: NC/AT. EOMI. pupils are 3 mm reactive bilaterally. No scleral injection. Dry mucous membranes. Cardiovascular: Tachycardic, heart rate in the 110s.. S1 and S2 normal. No murmur appreciated Resp: Normal work of breathing. Sonorous respirations, no wheezing, no crackles , no cough Abdomen: Abdomen is soft, nondistended. Nontender Skin: Intact. No abrasions, laceration or rash over the exposed skin MSK: Normal tone and bulk. Moving all extremities. No obvious deformity. Neuro: Somnolent but arousable to voice. GCS 14. Medical Decision Making Diagnostic Impression: Primary Impression: Drug overdose ER Course Is a 29-year-old male presenting by EMS for overdose of narcotics and benzodiazepines. He was given 2 mg Narcan in the field. He is arousable to voice a GCS 14 protecting his airway in no distress at this time. He is requesting advice on rehab facilities and is adamant that this was recreational use of these substances and not a suicide attempt. Labs show slight elevation in white count but the patient is afebrile. Creatinine slightly elevated 1.4 with a normal BUN and otherwise normal metabolic panel. Alcohol, salicylates and amphetamine levels are negative. Urine tox is pending. The patient is easily arousable but somewhat somnolent still. Does not require emergent administration of reversal medications at this time. Discussed with poison control who recommends long-term monitoring. We will further monitor in the emergency department until the patient metabolizes. He will be signed out to oncoming physician, Dr. Mcallister, for reevaluation and ultimate disposition. Laboratory Tests Test 12/11/19 12:33 12/11/19 18:04 White Blood Count 17.1 K/UL (4.8-10.8) H Red Blood Count 5.13 M/UL (4.70-6.10) Hemoglobin 16.3 G/DL (14.2-18.0) Hematocrit 49.6 % (42.0-52.0) Mean Corpuscular Volume 97 FL (80-99) Mean Corpuscular Hemoglobin 31.8 PG (27.0-31.0) H Mean Corpuscular Hemoglobin Concent 32.9 G/DL (32.0-36.0) Red Cell Distribution Width 11.8 % (11.6-14.8) Platelet Count 260 K/UL (150-450) Mean Platelet Volume 8.5 FL (6.5-10.1) Neutrophils (%) (Auto) 77.6 % (45.0-75.0) H Lymphocytes (%) (Auto) 16.5 % (20.0-45.0) L Monocytes (%) (Auto) 3.2 % (1.0-10.0) Eosinophils (%) (Auto) 1.6 % (0.0-3.0) Basophils (%) (Auto) 1.2 % (0.0-2.0) Sodium Level 138 MMOL/L (136-145) Potassium Level 3.5 MMOL/L (3.5-5.1) Chloride Level 104 MMOL/L (98-107) Carbon Dioxide Level 20 MMOL/L (21-32) L Anion Gap 15 mmol/L (5-15) Blood Urea Nitrogen 12 mg/dL (7-18) Creatinine 1.4 MG/DL (0.55-1.30) H Estimated Glomerular Filtration Rate 59.9 mL/min (>60) Glucose Level 166 MG/DL (74-106) H Calcium Level 8.1 MG/DL (8.5-10.1) L Total Bilirubin 0.3 MG/DL (0.2-1.0) Aspartate Amino Transferase (AST) 38 U/L (15-37) H Alanine Aminotransferase (ALT) 59 U/L (12-78) Alkaline Phosphatase 92 U/L (46-116) Total Protein 7.7 G/DL (6.4-8.2) Albumin 3.9 G/DL (3.4-5.0) Globulin 3.8 g/dL Albumin/Globulin Ratio 1.0 (1.0-2.7) Salicylates Level 0.9 ug/mL (2.8-20) L Acetaminophen Level < 2 MCG/ML (10-30) L Serum Alcohol < 3 mg/dL Urine Opiates Screen Negative (NEGATIVE) Urine Barbiturates Screen Negative (NEGATIVE) Phencyclidine (PCP) Screen Negative (NEGATIVE) Urine Amphetamines Screen Negative (NEGATIVE) Urine Benzodiazepines Screen Negative (NEGATIVE) Urine Cocaine Screen Negative (NEGATIVE) Urine Marijuana (THC) Screen Negative (NEGATIVE) EKG Diagnostic Results EKG Time: 12:35 Rate: tachycardiac Rhythm: NSR ST Segments: no acute changes Other Impression Sinus tachycardia, normal axis, normal intervals, no ST segment changes. Rhythm Strip Diag. Results Rhythm Strip Time: 12:35 EP Interpretation: yes Rate: 114 Rhythm: NSR, no PVC's, no ectopy Last Vital Signs Date Time Temp Pulse Resp B/P (MAP) Pulse Ox O2 Delivery O2 Flow Rate FiO2 12/11/19 12:20 97.9 140 16 134/63 (86) 99 Room Air Disposition: HOME, SELF-CARE Condition: Stable Scripts Naloxone HCl (Narcan) 4 Mg [place] 4 MG NS ONCE, #1 SPRAY Prov: Errol Mcallister MD 12/11/19 Juno Camacho MD Dec 11, 2019 12:51
[2019-12-11 13:08] LABS: ANION GAP 15 mmol/L (5-15); BLOOD UREA NITROGEN 12 mg/dL (7-18); CALCIUM 8.1 MG/DL (8.5-10.1); CARBON DIOXIDE 20 MMOL/L (21-32); CHLORIDE 104 MMOL/L (98-107); CREATININE 1.4 MG/DL (0.55-1.30); POTASSIUM 3.5 MMOL/L (3.5-5.1); SODIUM 138 MMOL/L (136-145)
[2019-12-11 13:12] LABS: ALANINE AMINOTRANSFERASE 59 U/L (12-78); ALBUMIN 3.9 G/DL (3.4-5.0); ALKALINE PHOSPHATASE 92 U/L (46-116); ASPARTATE AMINO TRANSFERASE 38 U/L (15-37); BILIRUBIN,TOTAL 0.3 MG/DL (0.2-1.0)
--- NOTE | 2019-12-11 13:47 | NUR ---
called poison control regarding the overdose spoke to jeanie the poison control rep . patient has to be watched for 6to 8 hrs for any respiratory distress also may give charcol 50 gm po if patient can swallow. also given tl#for [facility] @[phone] johansen has been notified
--- NOTE | 2019-12-11 15:28 | NUR ---
ED Nurse Note: Pt unable to provide urine. ERMD aware that pt is also refusing straight cath.
[2019-12-11 15:50] VITALS: BP 125/69
--- NOTE | 2019-12-11 16:57 | NUR ---
HAND-OFF: Report given to Krista RUSHING.
--- NOTE | 2019-12-11 17:14 | NUR ---
ED Nurse Note: pt calmly laying in bed on phone with his girlfriend, pt states he will attempt to urinate in bottle.
--- NOTE | 2019-12-11 18:04 | NUR ---
ED Nurse Note: obtained urine sent to lab
[2019-12-11] MEDS ORDERED: NARCAN4 MG NS (18:22)
--- NOTE | 2019-12-11 18:32 | NUR ---
ER DISCHARGE NOTE: Patient is cleared to be discharged per ERMD, pt is aox4, on room air, with stable vital signs. pt was given dc and prescription instructions, pt was able to verbalize understanding, pt id band and iv site removed without complications. pt is able to ambulate with steady gait. pt took all belongings. pt girlfriend picked him up. pt is aox4, pt ate sandwhich before leaving
[2019-12-11 18:33] VITALS: BP 133/72
== END 2019-12-11 18:34 | disposition home or self-care (01) ==
LOC: EDBD 12:26 → EMR 14:08
DX: T40.2X4A Poisoning by other opioids, undetermined, initial encounter (principal); T42.4X4A Poisoning by benzodiazepines, undetermined, initial encounter; Y92.9 Unspecified place or not applicable; R00.0 Tachycardia, unspecified
CPT/HCPCS: 36415; 80053; 80307; 85025; 93005; 99283; G0480